=== PATIENT | male | born 1965 | race Hispanic/Latino ===

== ENCOUNTER 2023-05-02 20:01 | Inpatient (IN) | payer BC ==
[~2023-05-02 20:01] MED LIST: Iopamidol-370 76% 500 ML MDV (1 ML CHARGE) ONE
[2023-05-02 20:20] LABS: #Eosinphils 0.1 thou/uL (0.0-0.7); #Monocytes 0.7 thou/uL (0.11-0.59); #Neutrophils 9.4 thou/uL (1.40-6.50); %Basophils 0.2 % (0.0-1.0); %Eosinophils 0.6 % (0.0-10.0); %Lymphocytes 9.6 % (21.0-51.0); %Monocytes 6.3 % (0.0-10.0); %Neutrophils 82.8 % (42.0-75.0); Hematocrit 44.3 % (42.0-52.0); Hemoglobin 15.3 g/dL (14.0-18.0); Mean Corpuscular HGB CONC 34.5 g/dL (32.0-36.0); Mean Corpuscular Hemoglobin 33.9 pg (27.0-31.0); Mean Corpuscular Volume 98.2 fl (78.0-98.0); Platelet Count 188 10x3/uL (130-400); RBC Distribution Width 12.6 % (11.5-14.5); Red Blood Cell (RBC) Count 4.51 mill/uL (4.70-6.10); White Blood Cell (WBC) Count 11.3 10x3/uL (4.8-10.8)
[2023-05-02 20:34] LABS: INR-International Normal Ratio 1.2; PTT 29.1 sec (22.9-36.1); Prothrombin Time 14.8 sec (12.0-14.7)
[2023-05-02 20:37] LABS: Bacteria/HPF None Seen HPF (None Seen); Bilirubin Negative (Negative); Blood, Urine Negative (Negative); CAUTI Indications for Culture Dysuria,urgency,freq; Clarity Clear (Clear); Glucose, Urine (Dipstick) Normal (Negative); Ketone, Urine Negative (Negative); Leukocyte Negative Leu/uL (Negative); Nitrite Negative (Negative); Protein, Urine (Dipstick) Negative (Neg-Trace); RBC/HPF None Seen HPF (0-3); Specific Gravity, Urine 1.005 (1.002-1.036); Squamous Epithelial None Seen HPF (0-3); Urobilinogen Normal mg/dL (Less than 2); WBC/HPF 0-3 HPF (0-3)
[2023-05-02 20:38] LABS: Urine Culture Reflex No No
[2023-05-02 20:46] LABS: ALT (SGPT) 78 U/L (8-55); AST (SGOT) 69 U/L (5-34); Albumin 3.5 g/dL (3.5-5.0); Alkaline Phosphatase 69 U/L (40-110); Anion Gap 11 mmol/L (10-20); BUN (Urea Nitrogen) 7 mg/dL (8.4-25.7); Bilirubin, Total 0.6 mg/dL (0.2-1.2); Calc. Creatinine Clearance 0 mL/min (70-130); Calcium 9.1 mg/dL (7.8-10.44); Carbon Dioxide 25 mmol/L (22-29); Chloride 103 mmol/L (98-107); Estimated GFR 105; Globulin 3.4 g/dL (2.4-3.5); Glucose 161 mg/dL (70-105); Protein, Total 6.9 g/dL (6.0-8.3); Sodium 135 mmol/L (136-145)
[2023-05-02 20:51] LABS: Troponin I Less than 0.010 ng/mL (< 0.028)
[2023-05-02] MEDS ORDERED: Aspirin Chewable 81 MG TAB ONE (23:27)
[2023-05-02] MEDS ORDERED: hydrALAZINE 20 MG/ML VIAL SLOW IVP PRN (23:29)
[2023-05-02] MEDS ORDERED: Labetalol HCl 100 MG/20 ML VIAL SLOW IVP PRN (23:29)
[2023-05-02] MEDS ORDERED: Ondansetron PF 4 MG/2 ML Vial IVP PRN (23:29)
[2023-05-03 00:45] VITALS: BMI 46.1
[2023-05-03 04:43] LABS: #Monocytes 1.2 thou/uL (0.11-0.59); #Neutrophils 12.2 thou/uL (1.40-6.50); %Basophils 0.1 % (0.0-1.0); %Eosinophils 0.1 % (0.0-10.0); %Lymphocytes 12.4 % (21.0-51.0); %Monocytes 7.6 % (0.0-10.0); %Neutrophils 79.3 % (42.0-75.0); Hematocrit 46.6 % (42.0-52.0); Hemoglobin 15.6 g/dL (14.0-18.0); Mean Corpuscular HGB CONC 33.5 g/dL (32.0-36.0); Mean Corpuscular Hemoglobin 33.6 pg (27.0-31.0); Mean Corpuscular Volume 100.4 fl (78.0-98.0); Mean Platelet Volume 9.6 fL (7.4-10.4); Platelet Count 206 10x3/uL (130-400); RBC Distribution Width 12.7 % (11.5-14.5); Red Blood Cell (RBC) Count 4.64 mill/uL (4.70-6.10); White Blood Cell (WBC) Count 15.5 10x3/uL (4.8-10.8)
[2023-05-03 04:57] LABS: Hemoglobin A1c 5.5 % (4.0-6.0)
[2023-05-03 05:25] LABS: Anion Gap 13 mmol/L (10-20); BUN (Urea Nitrogen) 7 mg/dL (8.4-25.7); Calc. Creatinine Clearance 199 mL/min (70-130); Calcium 9.5 mg/dL (7.8-10.44); Carbon Dioxide 25 mmol/L (22-29); Cardiac Risk 2.7 (Less than 4.5); Chloride 103 mmol/L (98-107); Cholesterol 156 mg/dl (< 200 Desired); Estimated GFR 105; Glucose 123 mg/dL (70-105); HDL Cholesterol 57 mg/dL (>60 Neg Risk); Potassium 4.7 mmol/L (3.5-5.1); Sodium 136 mmol/L (136-145)
[2023-05-03 06:01] LABS: Triglycerides 72 mg/dL (Less than 150)
[2023-05-03 06:08] LABS: LDL Cholesterol, Calculated 85 mg/dL
[2023-05-03] MEDS: Acetaminophen 325 MG TAB PO PRN (06:15)
[2023-05-03] MEDS ORDERED: Acetaminophen 325 MG TAB ONE (06:19)
[2023-05-03] MEDS ORDERED: Albuterol 2.5 MG (0.5 mL) NEB ONE ×2 (07:30→11:29)
[2023-05-03] MEDS: Albuterol 2.5 MG (3 mL) NEB NEB PRN (07:45)
[2023-05-03] MEDS ORDERED: Aspirin Chewable 81 MG TAB ONE (08:20)
[2023-05-03] MEDS: Aspirin 81 mg Enteric Coated Tablet PO SCH (10:09)
[2023-05-03] MEDS: Hydroxychloroquine Sulfate 200 MG TAB PO SCH (10:16)
[2023-05-03] MEDS ORDERED: Albuterol 2.5 MG (3 mL) NEB ONE (14:04)
[2023-05-03] MEDS ORDERED: Atorvastatin Calcium 40 MG TAB PO SCH (21:00)
[2023-05-04 06:19] LABS: #Eosinphils 0.1 thou/uL (0.0-0.7); #Monocytes 0.8 thou/uL (0.11-0.59); #Neutrophils 6.6 thou/uL (1.40-6.50); %Basophils 0.2 % (0.0-1.0); %Eosinophils 1.1 % (0.0-10.0); %Lymphocytes 18.6 % (21.0-51.0); %Monocytes 8.5 % (0.0-10.0); %Neutrophils 71.2 % (42.0-75.0); Hematocrit 46.5 % (42.0-52.0); Hemoglobin 15.3 g/dL (14.0-18.0); Mean Corpuscular HGB CONC 32.9 g/dL (32.0-36.0); Mean Corpuscular Hemoglobin 33.2 pg (27.0-31.0); Mean Corpuscular Volume 100.9 fl (78.0-98.0); Mean Platelet Volume 9.3 fL (7.4-10.4); Platelet Count 186 10x3/uL (130-400); RBC Distribution Width 13.1 % (11.5-14.5); Red Blood Cell (RBC) Count 4.61 mill/uL (4.70-6.10); White Blood Cell (WBC) Count 9.3 10x3/uL (4.8-10.8)
[2023-05-04 06:44] LABS: Anion Gap 12 mmol/L (10-20); BUN (Urea Nitrogen) 8 mg/dL (8.4-25.7); Calc. Creatinine Clearance 219 mL/min (70-130); Carbon Dioxide 23 mmol/L (22-29); Chloride 105 mmol/L (98-107); Estimated GFR 109; Glucose 98 mg/dL (70-105); Potassium 3.9 mmol/L (3.5-5.1); Sodium 136 mmol/L (136-145)
[2023-05-04] MEDS: Mometasone 200 MCG/Formoterol 5 MCG 120 PUFF INHALER INH SCH (07:11)
[2023-05-04] MEDS: Loratadine 10 MG TAB PO SCH (09:07)
[2023-05-04] MEDS: Folic Acid 1 MG TAB PO SCH (09:07)
[2023-05-04] MEDS: traMADol HCl 50 MG TAB PO PRN (09:07)
[2023-05-04] MEDS: Montelukast Sodium 10 mg Tablet PO SCH (09:09)
[2023-05-04] MEDS: Dexamethasone 4 mg/ml Vial SLOW IVP SCH (16:03)
[2023-05-05] MEDS: Dexamethasone 4 mg/ml Vial SLOW IVP SCH (00:09)
[2023-05-05] MEDS: Lisinopril 10 MG TAB PO SCH (08:38)
[2023-05-05 17:10] VITALS: BP 150/74; TEMP 98
== END 2023-05-05 18:07 | disposition home or self-care (01) | DRG 552 ==
LOC: ERS 20:01 → ERHOLD 23:29 → OBSVTOIN 05-03 16:16 → 2SW 05-03 19:26
PROVIDERS: ADMIT Internal Medicine; ATTEND Internal Medicine
DX: M48.02 Spinal stenosis, cervical region (principal); I50.32 Chronic diastolic (congestive) heart failure; G45.9 Transient cerebral ischemic attack, unspecified; M19.90 Unspecified osteoarthritis, unspecified site; I11.0 Hypertensive heart disease with heart failure; M06.9 Rheumatoid arthritis, unspecified; J45.909 Unspecified asthma, uncomplicated; L40.50 Arthropathic psoriasis, unspecified; Z86.73 Personal history of transient ischemic attack (TIA), and cerebral infarction without residual deficits; Z87.891 Personal history of nicotine dependence; Z79.51 Long term (current) use of inhaled steroids; Z79.82 Long term (current) use of aspirin; Z79.899 Other long term (current) drug therapy
CPT/HCPCS: 36415; 36416; 70450; 70496; 70498; 70551; 71045; 72125; 72141; 80048; 80053; 80061; 81001; 83036; 84484; 85025; 85610; 85730; 93005; 93306; 94640; 94664; J1100; J7611; Q9967

== ENCOUNTER 2023-09-05 01:10 | Emergency (ER) | payer BC, SELFPAY ==
[2023-09-05] MEDS ORDERED: Ketorolac Tromethamine 30 MG (1 mL) VIAL ONE (03:28)
[2023-09-05] MEDS ORDERED: HYDROcodone/Acetaminophen 5/325 mg Tablet ONE (03:28)
[2023-09-05] MEDS ORDERED: Methocarbamol 500 MG TAB ONE (03:28)
== END 2023-09-05 05:30 | disposition home or self-care (01) ==
LOC: ERS 01:10
DX: M19.011 Primary osteoarthritis, right shoulder (principal); I11.0 Hypertensive heart disease with heart failure; I50.9 Heart failure, unspecified; Z87.891 Personal history of nicotine dependence; Z86.73 Personal history of transient ischemic attack (TIA), and cerebral infarction without residual deficits; Z55.0 Illiteracy and low-level literacy
CPT/HCPCS: 96374; J1885

== ENCOUNTER 2023-09-10 13:32 | Emergency (ER) | payer BC ==
[2023-09-10] MEDS ORDERED: Ketorolac Tromethamine 30 MG (1 mL) VIAL ONE (15:30)
[2023-09-10] MEDS ORDERED: HYDROcodone/Acetaminophen 5/325 mg Tablet ONE (15:30)
== END 2023-09-10 15:52 | disposition home or self-care (01) ==
LOC: ERS 13:32
DX: M19.90 Unspecified osteoarthritis, unspecified site (principal); I11.0 Hypertensive heart disease with heart failure; I50.9 Heart failure, unspecified; J45.909 Unspecified asthma, uncomplicated; I25.2 Old myocardial infarction; Z79.899 Other long term (current) drug therapy
CPT/HCPCS: 96372; 99282; J1885

== ENCOUNTER 2023-09-22 12:56 | Emergency (ER) | payer BC ==
[2023-09-22] MEDS ORDERED: Ketorolac Tromethamine 30 MG (1 mL) VIAL ONE (14:50)
[2023-09-22] MEDS ORDERED: HYDROcodone/Acetaminophen 10/325 mg Tablet ONE (14:50)
== END 2023-09-22 15:05 | disposition home or self-care (01) ==
LOC: ERS 12:56
DX: M17.11 Unilateral primary osteoarthritis, right knee (principal); I11.0 Hypertensive heart disease with heart failure; I50.9 Heart failure, unspecified; I25.2 Old myocardial infarction; J45.909 Unspecified asthma, uncomplicated; Z86.73 Personal history of transient ischemic attack (TIA), and cerebral infarction without residual deficits; Z79.899 Other long term (current) drug therapy
CPT/HCPCS: J1885

== ENCOUNTER 2023-12-11 12:22 | Emergency (ER) | payer BC ==
[2023-12-11 13:26] LABS: #Basophils 0.04 10x3/uL (0.0-0.2); %Basophils 0.4 % (0.0-1.0); %Eosinophils 1.7 % (0.0-10.0); %Lymphocytes 21.2 % (21.0-51.0); %Monocytes 7.9 % (0.0-10.0); %Neutrophils 68.4 % (42.0-75.0); Hematocrit 45.5 % (42.0-52.0); Hemoglobin 15.4 g/dL (14.0-18.0); Mean Corpuscular HGB CONC 33.8 g/dL (32.0-36.0); Mean Corpuscular Hemoglobin 34.5 pg (27.0-31.0); Mean Corpuscular Volume 101.8 fL (78.0-98.0); Platelet Count 206 10x3/uL (130-400); Red Blood Cell (RBC) Count 4.47 mill/uL (4.70-6.10)
[2023-12-11 13:43] LABS: ALT (SGPT) 54 U/L (8-55); AST (SGOT) 45 U/L (5-34); Albumin 3.2 g/dL (3.5-5.0); Alkaline Phosphatase 65 U/L (40-110); Anion Gap 9 mmol/L (10-20); BUN (Urea Nitrogen) 8 mg/dL (8.4-25.7); Bilirubin, Total 0.9 mg/dL (0.2-1.2); Calc. Creatinine Clearance 0 mL/min (70-130); Calcium 9.3 mg/dL (7.8-10.44); Carbon Dioxide 27 mmol/L (22-29); Chloride 107 mmol/L (98-107); Estimated GFR 108; Globulin 3.4 g/dL (2.4-3.5); Glucose 106 mg/dL (70-105); Lipase 31 U/L (8-78); Magnesium 1.9 mg/dL (1.6-2.6); Potassium 3.8 mmol/L (3.5-5.1); Protein, Total 6.6 g/dL (6.0-8.3); Sodium 139 mmol/L (136-145)
[2023-12-11] MEDS ORDERED: Ondansetron ODT 4 MG TAB ONE (14:59)
[2023-12-11 15:17] LABS: Influenza A by NAA Not Detected (NotDetected); Influenza B by NAA Not Detected (NotDetected); SARS-CoV-2 NAA Rapid Test Not Detected (NotDetected)
[2023-12-11 15:22] LABS: Troponin I Less than 0.010 ng/mL (< 0.028)
== END 2023-12-11 15:12 | disposition home or self-care (01) ==
LOC: ERS 12:22
DX: R11.2 Nausea with vomiting, unspecified (principal); I11.0 Hypertensive heart disease with heart failure; I50.9 Heart failure, unspecified; J45.909 Unspecified asthma, uncomplicated; M19.90 Unspecified osteoarthritis, unspecified site; M06.9 Rheumatoid arthritis, unspecified; L40.50 Arthropathic psoriasis, unspecified; I25.2 Old myocardial infarction; Z79.899 Other long term (current) drug therapy; Z79.51 Long term (current) use of inhaled steroids
CPT/HCPCS: 36415; 71045; 80053; 83690; 83735; 83880; 84484; 85025; 93005; Q0162

== ENCOUNTER 2024-01-19 12:28 | Emergency (ER) | payer BC ==
[2024-01-19] MEDS ORDERED: Ipratropium/Albuterol 3 ML NEB ONE (12:51)
[2024-01-19] MEDS ORDERED: Dexamethasone 10 MG/ML VIAL ONE (13:20)
[2024-01-19 13:35] LABS: #Basophils 0.03 10x3/uL (0.0-0.2); %Basophils 0.3 % (0.0-1.0); %Eosinophils 1.9 % (0.0-10.0); %Lymphocytes 25.1 % (21.0-51.0); %Monocytes 10.6 % (0.0-10.0); %Neutrophils 61.8 % (42.0-75.0); Hematocrit 45.3 % (42.0-52.0); Hemoglobin 15.5 g/dL (14.0-18.0); Mean Corpuscular HGB CONC 34.2 g/dL (32.0-36.0); Mean Corpuscular Hemoglobin 34.8 pg (27.0-31.0); Mean Corpuscular Volume 101.6 fL (78.0-98.0); Mean Platelet Volume 8.8 fL (7.4-10.4); Platelet Count 218 10x3/uL (130-400); RBC Distribution Width 13.8 % (11.5-14.5); Red Blood Cell (RBC) Count 4.46 mill/uL (4.70-6.10)
[2024-01-19 13:58] LABS: Troponin I Less than 0.010 ng/mL (< 0.028)
[2024-01-19 14:15] LABS: ALT (SGPT) 48 U/L (8-55); AST (SGOT) 44 U/L (5-34); Albumin 3.5 g/dL (3.5-5.0); Alkaline Phosphatase 71 U/L (40-110); Anion Gap 13 mmol/L (10-20); BUN (Urea Nitrogen) 6 mg/dL (8.4-25.7); Bilirubin, Total 1.1 mg/dL (0.2-1.2); Calc. Creatinine Clearance 0 mL/min (70-130); Carbon Dioxide 26 mmol/L (22-29); Chloride 103 mmol/L (98-107); Estimated GFR 112; Globulin 3.8 g/dL (2.4-3.5); Glucose 88 mg/dL (70-105); Potassium 3.8 mmol/L (3.5-5.1); Protein, Total 7.3 g/dL (6.0-8.3); Sodium 138 mmol/L (136-145)
[2024-01-19] MEDS ORDERED: Iopamidol-370 76% 500 ML MDV (1 ML CHARGE) ONE (14:57)
[2024-01-19 15:45] LABS: Bacteria/HPF None Seen HPF (None Seen); Bilirubin Negative (Negative); Blood, Urine Negative (Negative); CAUTI Indications for Culture Dysuria,urgency,freq; Clarity Clear (Clear); Glucose, Urine (Dipstick) Normal (Negative); Ketone, Urine Negative (Negative); Leukocyte Negative Leu/uL (Negative); Nitrite Negative (Negative); Protein, Urine (Dipstick) 20 mg/dL (Neg-Trace); RBC/HPF 0-3 HPF (0-3); Specific Gravity, Urine 1.016 (1.002-1.036); Squamous Epithelial 0-3 HPF (0-3); Urobilinogen 3 mg/dL (Less than 2); WBC/HPF 0-3 HPF (0-3); pH, Urine 5.5 (5.0-9.0)
[2024-01-19 15:48] LABS: Urine Culture Reflex No No
[2024-01-19 16:17] LABS: Actual Bicarbonate (HCO3v) 25.9 mEq/L (22-28); Base Excess 1.4 mEq/L (-2.0 to +3.0); Calcium, Ionized (venous) 1.15 mmol/L (1.16-1.32); Chloride (VBG) 100 mmol/L (98-106); Hematocrit-VBG 48 % (42.0-52.0); Hemoglobin (Hb) 16.4 g/dL (13.1-17.2); Sodium 138 mmol/L (133-146); pH (venous) 7.421 (7.32-7.43)
[2024-01-19] MEDS ORDERED: Sodium Chloride 0.9% 100 ML ONE (16:56)
[2024-01-19] MEDS ORDERED: cefTRIAXone (ROCEPHIN) 2 GM VIAL ONE (16:56)
[2024-01-19] MEDS ORDERED: Azithromycin 500 MG VIAL ONE (17:22)
== END 2024-01-19 18:16 | disposition home or self-care (01) ==
LOC: ERS 12:28
DX: J18.9 Pneumonia, unspecified organism (principal); I11.0 Hypertensive heart disease with heart failure; I50.9 Heart failure, unspecified
CPT/HCPCS: 36415; 71045; 71275; 80053; 81001; 82805; 83735; 83880; 84484; 85025; 87081; 87428; 87430; 93005; 96374; 96375; J0456; J0696; J1100; J7620; Q9967